=== PATIENT | female | born 1970 | race Caucasian/White ===

== ENCOUNTER 2017-02-14 15:24 | Observation (INO) | payer MEDICAID ==
[~2017-02-14] VITALS: Ht 162.6 cm; Wt 90.0 kg
[2017-02-14 16:31] LABS: BLOOD UREA NITROGEN 10 mg/dL (7-18)
[2017-02-14 16:35] LABS: ASPARTATE AMINO TRANSFERASE 29 U/L (15-37)
[2017-02-14 16:37] LABS: ACETAMINOPHEN < 2 mcg/mL (10-30)
[2017-02-14 17:28] LABS: DAU SCREEN DISCLAIMER
[2017-02-15] MEDS ORDERED: ACETAMINOPHEN 325 MG TABLET PO PRN (02:30)
[2017-02-15] MEDS ORDERED: POLYETHYLENE GLYCOL 17 GM PACKET PO PRN (02:30)
[2017-02-15] MEDS ORDERED: DOCUSATE 100 MG CAPSULE PO PRN (02:30)
[2017-02-15] MEDS ORDERED: BISACODYL 10 MG SUPP PR PRN (02:30)
[2017-02-15] MEDS ORDERED: LEVOTHYROXINE 100 MCG TABLET PO SCH (06:00)
[2017-02-15 08:18] VITALS: BP 171/101
[2017-02-15] MEDS ORDERED: LISINOPRIL 10 MG TABLET PO SCH (09:00)
[2017-02-15] MEDS ORDERED: LEVOTHYROXINE 150 MCG TABLET PO SCH (09:00)
[2017-02-15 09:13] VITALS: BP 141/90
== END 2017-02-15 13:10 ==
LOC: ED 18:52 → EDIP 18:53 → 3E 02-15 02:46
PROVIDERS: ADMIT Internal Medicine; ATTEND Internal Medicine
DX: R45.851 Suicidal ideations (principal); F41.1 Generalized anxiety disorder; F33.2 Major depressive disorder, recurrent severe without psychotic features; F11.23 Opioid dependence with withdrawal; E03.9 Hypothyroidism, unspecified; I10 Essential (primary) hypertension; Z91.5 Personal history of self-harm
CPT/HCPCS: 36415; 80053; 80307; 80329; 84439; 84443; 84703; 99285; G0378; G0479; G0480

== ENCOUNTER 2017-05-05 14:12 | Emergency (ER) | payer MEDICAID ==
[~2017-05-05] VITALS: Ht 162.6 cm; Wt 90.0 kg
[2017-05-05 14:13] VITALS: BP 151/91
[2017-05-05] MEDS ORDERED: HYDROcodone/APAP 5/325 TABLET ONE (14:50)
[2017-05-05] MEDS ORDERED: HYDROcodone/APAP 5/325 TABLET PO ONE (15:00)
== END 2017-05-05 15:05 | disposition home or self-care (01) ==
LOC: ED 14:27
DX: K08.89 Other specified disorders of teeth and supporting structures (principal); M25.521 Pain in right elbow; I10 Essential (primary) hypertension
CPT/HCPCS: 99283